=== PATIENT | male | born 1970 | race African-American/Black ===

== ENCOUNTER 2018-02-13 15:58 | Emergency (ER) | payer BC, OTHER ==
[2018-02-13 16:42] VITALS: BP 127/87
--- NOTE | 2018-02-13 17:00 | UC ---
Hand/Wrist HPI - HPI Summary HPI Summary: Pt presents with right index finger pain. He tells me that he fell and landed awkwardly on this hand/finger about 4 months ago on the snow. Since that time has had a mild pain with movement at the DIP. 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 Denies numbness or tingling. - History Of Current Complaint Chief Complaint: UCUpperExtremity Stated Complaint: FINGER INJURY Time Seen by Provider: 02/13/18 17:00 Hx Obtained From: Patient Onset/Duration: Sudden Onset Severity Initially: Mild Severity Currently: Mild Pain Intensity: 2 Pain Scale Used: 0-10 Numeric - Allergies/Home Medications Allergies/Adverse Reactions: Allergies Allergy/AdvReac Type Severity Reaction Status Date / Time No Known Allergies Allergy Verified 02/13/18 16:43 Home Medications: Home Medications NK [No Home Medications Reported] 02/13/18 [History Confirmed 02/13/18] PMH/Surg Hx/FS Hx/Imm Hx - Additional Past Medical History Additional PMH: None Previously Healthy: Yes - Surgical History Surgical History: Yes Surgery Procedure, Year, and Place: Lipoma - Family History Known Family History: Positive: None - Social History Occupation: Employed Full-time Lives: With Family Alcohol Use: Rare Substance Use Type: None Smoking Status (MU): Never Smoked Tobacco Review of Systems Constitutional: Negative Skin: Negative Respiratory: Negative Cardiovascular: Negative Gastrointestinal: Negative Neurovascular: Negative Musculoskeletal: Other: - Right index finger pain Neurological: Negative Psychological: Negative All Other Systems Reviewed And Are Negative: Yes Physical Exam - Summary Physical Exam Summary: GENERAL: NAD. WDWN. No pain distress. SKIN: No rashes, sores, lesions, or open wounds. NECK: Supple. Nontender. No lymphadenopathy. CHEST: No accessory muscle use. Breathing comfortably and in no distress. CV: RRR. Without m/r/g. Pulses intact radial and ulnar. MSK: NTTP right index finger. With active flexion at DIP he has mild pain here. 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 No edema or obvious bony deformities. NEURO: Alert. Sensations intact hand and all fingers. PSYCH: Age appropriate behavior. Triage Information Reviewed: Yes Vital Signs: Initial Vital Signs Temp 97.7 F 02/13/18 16:39 Pulse 73 02/13/18 16:39 Resp 12 02/13/18 16:39 BP 127/87 02/13/18 16:39 Pulse Ox 100 02/13/18 16:39 Hand/Wrist Course/Dx - Course Course Of Treatment: XR: IMPRESSION: NO EVIDENCE FOR FRACTURE, IF THE PATIENT'S SYMPTOMS PERSIST RECOMMEND FOLLOW-UP IMAGING. Pt did not want further investigation or treatment at this time. I provided him with the number for orthopedics should he want follow up. - Differential Dx/Diagnosis Provider Diagnoses: Right index finger pain Discharge - Sign-Out/Discharge Documenting (check all that apply): Discharge/Admit/Transfer - Discharge Plan Condition: Stable Disposition: HOME Patient Education Materials: Finger Sprain (ED) Referrals: No Primary Care Phys,NOPCP [Primary Care Provider] - Franci Maya MD [Medical Doctor] - If Needed Additional Instructions: If you develop a fever, shortness of breath, chest pain, new or worsening symptoms - please call your PCP or go to the ED. 1) If you decide that you want further investigation of your finger pain - please call Orthopedics at the number below to schedule a follow up appointment. - Billing Disposition and Condition Condition: STABLE Disposition: HOME
--- NOTE | 2018-02-13 17:53 | RAD ---
INDICATION: Pain at the right index finger distal interphalangeal joint since a fall 5 months earlier COMPARISON: None. TECHNIQUE: 3 views of the right index finger were obtained. FINDINGS: The bones are normal alignment. Joint spaces appear maintained. No fracture is seen. IMPRESSION: NO EVIDENCE FOR FRACTURE, IF THE PATIENT'S SYMPTOMS PERSIST RECOMMEND FOLLOW-UP IMAGING.
== END 2018-02-13 17:42 | disposition home or self-care (01) ==
LOC: UCEAST 15:58
DX: M79.644 Pain in right finger(s) (principal)
CPT/HCPCS: 73140; 99201; G0463